=== PATIENT | male | born 1955 | race Caucasian/White ===

== ENCOUNTER → 2021-07-07 | Outpatient (CLI) | payer SELFPAY ==
--- NOTE | 2021-07-07 09:23 | Diagnostic Imaging Report ---
INDICATION: Hyperlipidemia. TECHNIQUE: The CT coronary calcium study was performed in the routine fashion without contrast. Dose reduction protocol was used. FINDINGS: Raw data images demonstrate no overt adenopathy in the mediastinum or dipika. The visualized portions of the lung johnson show no abnormalities; however, the entirety of the lungs is not included on this study. There is some coronary calcium at the right coronary artery origin with no significant calcification seen in the left main, LAD, or circumflex coronary arteries. The calcium score for the right coronary artery calcification was 59.7. IMPRESSION: The CT cardiac calcium score is 59.74 with plaquing at the right coronary artery origin. This score is compatible with a mild overall plaque burden. No significant coronary artery calcifications are seen in the remaining territories. There were no incidental findings. Dictated by: Dictated on workstation # [id number]
== END ==
LOC: RAD FS 08:21
PROVIDERS: ATTEND Family Medicine
DX: E78.2 Mixed hyperlipidemia (principal)
CPT/HCPCS: 75571